=== PATIENT | female | born 1965 | race Caucasian/White ===

== ENCOUNTER 2019-10-15 08:14 | Day surgery (SDC) | payer MEDICARE ==
[2019-10-12 17:05] LABS: BASOPHILS % (AUTO) 0.5 % (0-1); EOSINOPHILS # (AUTO) 0.1 X10'3 (0-0.9); EOSINOPHILS % (AUTO) 1.4 % (0-6); LYMPHOCYTES # (AUTO) 2.8 X10'3 (1.1-4.8); LYMPHOCYTES % (AUTO) 37.1 % (21-51); MEAN CORPUSCULAR HEMOGLOBIN 29.8 PG (27.0-31.0); MEAN CORPUSCULAR HGB CONC 33.4 g/dL (33.0-36.5); MEAN CORPUSCULAR VOLUME 89.3 FL (78-98); MONOCYTES # (AUTO) 0.6 X10'3 (0-0.9); MONOCYTES % (AUTO) 7.5 % (2-12); NEUTROPHILS % (AUTO) 53.5 % (42-75); PRE OP HEMOGLOBIN 12.7 g/dL (12.0-16.0); PRE OP PLATELET COUNT 260 X10'3 (140-440); RED BLOOD COUNT 4.25 X10'6 (4.20-5.60); RED CELL DISTRIBUTION WIDTH 14.2 % (11.5-14.5)
[2019-10-12 17:08] LABS: CLARITY,URINE SLIGHTLY CLOUDY (Clear); COLOR,URINE YELLOW (Yellow); GLUCOSE, URINE NEGATIVE (Neg); KETONES,URINE NEGATIVE (Neg); LEUKOCYTE ESTERASE ,URINE NEGATIVE (Neg); NITRITES, URINE NEGATIVE (Neg); OCCULT BLOOD,URINE NEGATIVE (Neg); PROTEIN,URINE NEGATIVE (Neg); UROBILINOGEN,URINE 0.2 E.U/dL (0.2-1.0)
[2019-10-12 17:11] LABS: UA COLLECTION TYPE CLN CATCH MIDSTREAM
[2019-10-12 17:17] LABS: PRE OP PROTIME 10.3 SECONDS (9.0-12.0)
[2019-10-12 17:20] LABS: ALBUMIN 3.9 G/DL (3.4-5.0); ALBUMIN/GLOBULIN RATIO 1.2 (1.1-1.5); ALKALINE PHOSPHATASE 87 IU/L (46-116); BLOOD UREA NITROGEN 20 MG/DL (7-18); BUN/CREATININE RATIO 22.2 (6.6-38.0); CALCIUM 8.4 MG/DL (8.5-10.1); CHLORIDE 106 MMOL/L (99-107); PRE OP ALT 28 U/L (30-65); PRE OP ANION GAP 2 (8-16); PRE OP AST 13 U/L (10-37); PRE OP BILIRUB, TOTAL 0.3 MG/DL (0.0-1.0); PRE OP GLUCOSE 97 MG/DL (70-104); PRE OP POTASSIUM 3.5 MMOL/L (3.4-5.1); PRE OP SODIUM 140 MMOL/L (135-145); TOTAL CARBON DIOXIDE 31.7 MMOL/L (24-32); TOTAL PROTEIN 7.2 G/DL (6.4-8.2); eGFR 66 ML/MIN
[2019-10-12 17:22] LABS: MUCUS STRANDS MANY /LPF (Neg); SQUAMOUS EPITHELIAL CELL,UR MANY /LPF (FEW); TRANSITIONAL EPI CELLS,URINE FEW /HPF
[2019-10-12 17:24] LABS: RBC,URINE 0-2 /HPF (0-2); WBC,URINE 0-4 /HPF (0-4)
[2019-10-12 17:25] LABS: BACTERIA,URINE 3+ /HPF (Neg)
[2019-10-12 17:26] LABS: YEAST FEW /HPF (NEGATIVE)
[~2019-10-15] VITALS: Ht 172.7 cm; Wt 77.0 kg
[2019-10-15] VITALS (10 sets, daily range): BP systolic 120–140; BP diastolic 66–85
[~2019-10-15 08:14] MED LIST: ALPR-624 PO; IBUPROFEN PRN; LAMO100T2 PO; MELA3TAB64 PO; QUET50TA PO; TYLENOL PRN; ceFOXitin 2 GM ADDVANTGE BAG 50 ML IV ONE; famotidine 10mg tablet PO ONE; ringers solution, lacted 1,000 ML IV SCH
[2019-10-15] MEDS ORDERED: BUPIVAcaine/PF 2.5 mg/ml (0.25%) 30ml vial ONE ×2 (09:22→11:03)
[2019-10-15] MEDS ORDERED: ringers solution, lacted 1,000 ML IV SCH (09:36)
[2019-10-15] MEDS ORDERED: proCHLORperazine 10 MG/2 ml inj IV PRN (09:40)
[2019-10-15] MEDS ORDERED: morphine 4 MG/ML inj SYRINge IV PRN ×2 (09:40)
[2019-10-15] MEDS ORDERED: meperidine/PF 25mg/ml syringe IV PRN ×3 (09:40)
[2019-10-15] MEDS ORDERED: ondansetron/PF 4mg/2ml inj IV PRN (09:40)
[2019-10-15] MEDS ORDERED: aprepitant 40mg capsule PO ONE (09:54)
[2019-10-15] MEDS ORDERED: scopolamine 1.5mg patch.TD72 TD ONE (09:54)
[2019-10-15] MEDS ORDERED: midazolam 2 mg/2 ml injection ONE (09:56)
[2019-10-15] MEDS ORDERED: fentaNYL /PF 50mcg/ml 5ml ampule ONE (09:57)
[2019-10-15] MEDS ORDERED: propofol inj 20 ML IV ONE (09:57)
[2019-10-15] MEDS ORDERED: LIDOcaine 2% (20mg/ml) 5ml vial ONE (09:57)
[2019-10-15] MEDS ORDERED: ondansetron/PF 4mg/2ml inj ONE (09:59)
[2019-10-15] MEDS ORDERED: rocuronium 10mg/ml inj IV ONE (09:59)
[2019-10-15] MEDS ORDERED: sevoflurane 250ml liquid IH ONE (10:05)
[2019-10-15] MEDS ORDERED: dexamethasone sod phosphate 10mg/ml inj ONE (10:05)
[2019-10-15] MEDS ORDERED: acetaminophen 1,000mg/100ml IV 100 ML IV ONE ×2 (10:30→12:31)
[2019-10-15] MEDS ORDERED: meperidine/PF 50mg/ml syringe ONE (12:54)
[2019-10-15] MEDS ORDERED: ketorolac trometh. 30mg/ml inj. ONE (13:30)
--- NOTE | 2019-10-15 13:40 | NUR ---
Received from OR via BED , accompanied by Anesthesiologist DR THAYER and report given by Anesthesiolgist. PATIENT WAKING UP, DENIES, V/S WNL, NEUROVASCULAR CHECKS INTACT, 20G PIV RUE, SCD ON, DEMABONDED AND BAND AIDS TO LAP SIGHTS OF ABDOMEN AND WITH PERIPAD WITH SCANT DRAINAGE CDI.
--- NOTE | 2019-10-15 15:00 | NUR ---
PATIENT A&OX4, DENIES, V/S WNL, NEUROVASCULAR CHECKS INTACT, 20G PIV RUE D/C, SCD OFF, DEMABONDED AND BAND AIDS TO LAP SIGHTS OF ABDOMEN AND WITH PERIPAD WITH SCANT DRAINAGE CDI. . I HAVE REVIEWED D/C INSTRUCTIONS WITH PATIENT AND FAMILY AND THEY HAVE VERBALIZED UNDERSTANDING. PATIENT D/C HOME WITH FAMILY TO TRANSPORT AND ALL BELONGINGS..
== END 2019-10-15 15:00 | disposition home or self-care (01) ==
LOC: PAS 08:14
PROVIDERS: ATTEND Obstetrics & Gynecology
DX: R19.00 Intra-abdominal and pelvic swelling, mass and lump, unspecified site (principal); D25.1 Intramural leiomyoma of uterus; N80.1 Endometriosis of ovary; N73.6 Female pelvic peritoneal adhesions (postinfective); Z98.890 Other specified postprocedural states; F41.9 Anxiety disorder, unspecified; F31.9 Bipolar disorder, unspecified; Z88.8 Allergy status to other drugs, medicaments and biological substances; Z79.899 Other long term (current) drug therapy; Z79.01 Long term (current) use of anticoagulants
CPT/HCPCS: 36415; 58571; 80053; 81001; 82948; 85025; 85610; 85730; 86885; 86900; 86901; 93005; C1758; J0131; J0694; J1100; J1885; J2001; J2175; J2250; J2405; J2704; J3010; J3490; J7120; J8501; A4618; A7000

== ENCOUNTER 2019-11-06 21:51 | Emergency (ER) | payer MEDICARE ==
[~2019-11-06] VITALS: Ht 172.7 cm; Wt 76.4 kg
[~2019-11-06 21:51] MED LIST changes: -ceFOXitin 2 GM ADDVANTGE BAG 50 ML IV ONE; -famotidine 10mg tablet PO ONE; -ringers solution, lacted 1,000 ML IV SCH
[2019-11-06 23:57] LABS: BASOPHILS % (AUTO) 0.5 % (0-1); EOSINOPHILS # (AUTO) 0.2 X10'3 (0-0.9); EOSINOPHILS % (AUTO) 2.6 % (0-6); HEMATOCRIT 34.8 % (35.0-45.0); HEMOGLOBIN 11.7 g/dl (12.0-16.0); LYMPHOCYTES # (AUTO) 3.3 X10'3 (1.1-4.8); LYMPHOCYTES % (AUTO) 45.8 % (21-51); MEAN CORPUSCULAR HEMOGLOBIN 29.8 PG (27.0-31.0); MEAN CORPUSCULAR HGB CONC 33.7 g/dL (33.0-36.5); MEAN CORPUSCULAR VOLUME 88.3 FL (78-98); MEAN PLATELET VOLUME 8.6 FL (7.4-10.4); MONOCYTES # (AUTO) 0.5 X10'3 (0-0.9); MONOCYTES % (AUTO) 6.8 % (2-12); NEUTROPHILS # (AUTO) 3.2 X10'3 (1.8-7.7); NEUTROPHILS % (AUTO) 44.3 % (42-75); PLATELET COUNT 316 X10'3 (140-440); RED BLOOD COUNT 3.94 X10'6 (4.20-5.60); RED CELL DISTRIBUTION WIDTH 13.4 % (11.5-14.5); WHITE BLOOD COUNT 7.2 X10'3 (4.5-11.0)
[2019-11-06] MEDS ORDERED: iohexol 300mg/ml 100ml inj. ONE (23:57)
[2019-11-07 00:10] LABS: ALANINE AMINOTRANSFERASE 21 U/L (12-78); ALBUMIN 3.3 G/DL (3.4-5.0); ALKALINE PHOSPHATASE 90 IU/L (46-116); ANION GAP 8 (8-16); ASPARTATE AMINO TRANSFERASE 14 U/L (10-37); BILIRUBIN,TOTAL 0.1 MG/DL (0.1-1.0); BLOOD UREA NITROGEN 25 MG/DL (7-18); BUN/CREATININE RATIO 28.1 (6.6-38.0); CALCIUM 8.5 MG/DL (8.5-10.1); CHLORIDE 108 MMOL/L (99-107); CREATININE 0.89 MG/DL (0.40-0.90); GLUCOSE 101 MG/DL (70-104); POTASSIUM 4.1 MMOL/L (3.5-5.1); SODIUM 143 MMOL/L (135-145); TOTAL CARBON DIOXIDE 27.5 MMOL/L (24-32); TOTAL PROTEIN 6.6 G/DL (6.4-8.2); eGFR 67 ML/MIN
[2019-11-07 01:03] VITALS: BP 146/93
[2019-11-07 01:11] LABS: CLARITY,URINE CLEAR (Clear); COLOR,URINE YELLOW (Yellow); GLUCOSE, URINE NEGATIVE (Neg); KETONES,URINE NEGATIVE (Neg); LEUKOCYTE ESTERASE ,URINE NEGATIVE (Neg); NITRITES, URINE NEGATIVE (Neg); OCCULT BLOOD,URINE LARGE (Neg); PROTEIN,URINE NEGATIVE (Neg); UROBILINOGEN,URINE 0.2 E.U/dL (0.2-1.0)
[2019-11-07 01:18] LABS: RBC,URINE 20-50 /HPF (0-2); UA COLLECTION TYPE VOIDED; WBC,URINE NONE SEEN /HPF (0-4)
[2019-11-07 01:19] LABS: BACTERIA,URINE NONE SEEN /HPF (Neg); SQUAMOUS EPITHELIAL CELL,UR FEW /LPF (FEW)
== END 2019-11-07 01:38 | disposition home or self-care (01) ==
LOC: ER 21:51
DX: K59.00 Constipation, unspecified (principal); N93.8 Other specified abnormal uterine and vaginal bleeding; R10.11 Right upper quadrant pain; E78.00 Pure hypercholesterolemia, unspecified; I10 Essential (primary) hypertension; Z98.890 Other specified postprocedural states; Z88.8 Allergy status to other drugs, medicaments and biological substances; Z88.1 Allergy status to other antibiotic agents; Z79.899 Other long term (current) drug therapy
CPT/HCPCS: 36415; 74177; 80053; 81001; 85025; 99284; Q9967

== ENCOUNTER 2021-01-20 23:03 | Emergency (ER) | payer MEDICARE ==
[~2021-01-20] VITALS: Ht 172.7 cm; Wt 77.3 kg
[~2021-01-20 23:03] MED LIST changes: +MELA3TAB39 PO; -MELA3TAB64 PO
[2021-01-20 23:41] LABS: ALANINE AMINOTRANSFERASE 30 U/L (12-78); ALBUMIN 4.3 G/DL (3.4-5.0); ALBUMIN/GLOBULIN RATIO 1.1 (1.1-1.5); ALKALINE PHOSPHATASE 130 IU/L (46-116); ANION GAP 7 (8-16); ASPARTATE AMINO TRANSFERASE 19 U/L (10-37); BASOPHILS % (AUTO) 0.3 % (0-1); BILIRUBIN,TOTAL 0.3 MG/DL (0.1-1.0); BLOOD UREA NITROGEN 19 MG/DL (7-18); BUN/CREATININE RATIO 17.4 (6.6-38.0); CALCIUM 9.3 MG/DL (8.5-10.1); CHLORIDE 106 MMOL/L (99-107); CREATININE 1.09 MG/DL (0.40-0.90); EOSINOPHILS # (AUTO) 0.2 X10'3 (0-0.9); EOSINOPHILS % (AUTO) 1.3 % (0-6); GLUCOSE 99 MG/DL (70-104); HEMATOCRIT 40.7 % (35.0-45.0); HEMOGLOBIN 13.4 g/dl (12.0-16.0); LYMPHOCYTES # (AUTO) 4.5 X10'3 (1.1-4.8); LYMPHOCYTES % (AUTO) 37.6 % (21-51); MEAN CORPUSCULAR HEMOGLOBIN 29.3 PG (27.0-31.0); MEAN CORPUSCULAR HGB CONC 32.9 g/dL (33.0-36.5); MEAN CORPUSCULAR VOLUME 88.8 FL (78-98); MONOCYTES # (AUTO) 0.9 X10'3 (0-0.9); MONOCYTES % (AUTO) 7.5 % (2-12); NEUTROPHILS # (AUTO) 6.4 X10'3 (1.8-7.7); NEUTROPHILS % (AUTO) 53.3 % (42-75); PLATELET COUNT 329 X10'3 (140-440); POTASSIUM 3.9 MMOL/L (3.5-5.1); RED BLOOD COUNT 4.58 X10'6 (4.20-5.60); RED CELL DISTRIBUTION WIDTH 13.3 % (11.5-14.5); SODIUM 142 MMOL/L (135-145); TOTAL CARBON DIOXIDE 28.9 MMOL/L (24-32); TOTAL PROTEIN 8.2 G/DL (6.4-8.2); eGFR 53 ML/MIN
[2021-01-21 04:16] VITALS: BP 176/91
== END 2021-01-21 04:18 | disposition home or self-care (01) ==
LOC: ER 23:04
DX: R07.89 Other chest pain (principal); I10 Essential (primary) hypertension; R53.83 Other fatigue; E78.00 Pure hypercholesterolemia, unspecified; G89.29 Other chronic pain; Z79.899 Other long term (current) drug therapy; Z88.2 Allergy status to sulfonamides; Z88.8 Allergy status to other drugs, medicaments and biological substances
CPT/HCPCS: 36415; 71045; 80053; 83880; 84484; 85025; 93005; 99285

== ENCOUNTER 2022-01-05 12:39 | Emergency (ER) | payer MEDICARE ==
[~2022-01-05] VITALS: Ht 172.7 cm; Wt 75.0 kg
[2022-01-05 13:00] VITALS: BP 109/68
== END 2022-01-05 15:09 | disposition left against medical advice (07) ==
LOC: ER 12:40
DX: R05.9 Cough, unspecified (principal); Z53.21 Procedure and treatment not carried out due to patient leaving prior to being seen by health care provider

== ENCOUNTER 2022-07-30 14:16 | Emergency (ER) | payer MEDICARE ==
[~2022-07-30] VITALS: Ht 172.7 cm; Wt 68.0 kg
[2022-07-30 15:20] VITALS: BP 138/68
[2022-07-30 15:32] LABS: BASOPHILS % (AUTO) 0.6 % (0-1); EOSINOPHILS # (AUTO) 0.1 X10'3 (0-0.9); EOSINOPHILS % (AUTO) 1.6 % (0-6); HEMATOCRIT 35.9 % (35.0-45.0); HEMOGLOBIN 11.8 g/dl (12.0-16.0); LYMPHOCYTES # (AUTO) 3.2 X10'3 (1.1-4.8); LYMPHOCYTES % (AUTO) 46.4 % (21-51); MEAN CORPUSCULAR HEMOGLOBIN 30.2 PG (27.0-31.0); MEAN CORPUSCULAR HGB CONC 32.9 g/dL (33.0-36.5); MEAN CORPUSCULAR VOLUME 91.9 FL (78-98); MEAN PLATELET VOLUME 9.1 FL (7.4-10.4); MONOCYTES # (AUTO) 0.4 X10'3 (0-0.9); NEUTROPHILS # (AUTO) 3.2 X10'3 (1.8-7.7); NEUTROPHILS % (AUTO) 45.4 % (42-75); PLATELET COUNT 251 X10'3 (140-440); RED CELL DISTRIBUTION WIDTH 12.9 % (11.5-14.5)
[2022-07-30 15:45] LABS: ALANINE AMINOTRANSFERASE 21 U/L (12-78); ALBUMIN 3.6 G/DL (3.4-5.0); ALBUMIN/GLOBULIN RATIO 1.2 (1.1-1.5); ALKALINE PHOSPHATASE 72 IU/L (46-116); ANION GAP 6 (8-16); ASPARTATE AMINO TRANSFERASE 15 U/L (10-37); BILIRUBIN,TOTAL 0.3 MG/DL (0.1-1.0); BLOOD UREA NITROGEN 16 MG/DL (7-18); BUN/CREATININE RATIO 20.5 (6.6-38.0); CALCIUM 8.9 MG/DL (8.5-10.1); CHLORIDE 107 MMOL/L (99-107); CREATININE 0.78 MG/DL (0.40-0.90); GLUCOSE 86 MG/DL (70-104); LIPASE 84 U/L (73-393); SODIUM 143 MMOL/L (135-145); TOTAL CARBON DIOXIDE 30.3 MMOL/L (24-32); TOTAL PROTEIN 6.7 G/DL (6.4-8.2); eGFR 77 ML/MIN
[2022-07-30] MEDS ORDERED: mag hydrox/Alum hydrox/simeth 30ml oral suspension PO ONE (16:25)
[2022-07-30] MEDS ORDERED: LIDOcaine Viscous 15ml cup MM ONE (16:25)
[2022-07-30] MEDS ORDERED: famotidine 20mg tablet PO ONE (16:25)
[2022-07-30 17:23] LABS: URINE HCG NEGATIVE (NEG)
[2022-07-30 17:25] LABS: CLARITY,URINE CLEAR (Clear); COLOR,URINE YELLOW (Yellow); GLUCOSE, URINE NEGATIVE (Neg); KETONES,URINE NEGATIVE (Neg); LEUKOCYTE ESTERASE ,URINE NEGATIVE (Neg); NITRITES, URINE NEGATIVE (Neg); OCCULT BLOOD,URINE NEGATIVE (Neg); PH,URINE 5.5 (4.8-8.0); PROTEIN,URINE NEGATIVE (Neg); UROBILINOGEN,URINE 0.2 E.U/dL (0.2-1.0)
[2022-07-30 17:53] LABS: UA COLLECTION TYPE CLN CATCH MIDSTREAM
== END 2022-07-30 17:53 | disposition home or self-care (01) ==
LOC: ER 14:17
DX: K59.00 Constipation, unspecified (principal); R10.13 Epigastric pain; E78.00 Pure hypercholesterolemia, unspecified; G89.29 Other chronic pain; F41.9 Anxiety disorder, unspecified; F32.A Depression, unspecified; Z98.890 Other specified postprocedural states; Z88.1 Allergy status to other antibiotic agents; Z88.8 Allergy status to other drugs, medicaments and biological substances; Z79.899 Other long term (current) drug therapy
CPT/HCPCS: 36415; 80053; 81003; 81025; 83690; 85025; 93005; 99284

== ENCOUNTER 2025-07-22 14:16 | Emergency (ER) | payer OTHER, MEDICARE ==
[~2025-07-22] VITALS: Ht 172.7 cm; Wt 70.0 kg
[2025-07-22 14:45] VITALS: BP 144/81
--- NOTE | 2025-07-22 15:59 | Physician Documentation ---
History of Present Illness ~ Chief Complaint: Neck pain Stated Complaint: NECK PAIN Time Seen by MD: 18:51 Primary Medical Doctor: [facility] HPI This is a 59-year-old female who presents with left-sided neck pain onset Saturday afternoon, patient reports that she has experienced several episodes of dizziness with standing. Patient was seen by her primary care at the [facility] on Saturday though was directed to present to the emergency department if symptoms had not resolved by today. Medication Reconciliation Allergies: Coded Allergies: venlafaxine HCl (Verified Allergy, Unknown, 07/22/25) amoxicillin (Unverified Adverse Reaction, Unknown, 07/22/25) Scheduled Lamotrigine* (Lamictal*), 2 TAB PO DAILY, (Reported) Quetiapine Fumarate (Seroquel), 1 TAB PO HS, (Reported) Scheduled PRN Alprazolam* (Xanax*), 1 TAB PO DAILY PRN for for anxiety/agitation, (Reported) Melatonin (Melatonin), 1 TAB PO HS PRN for sleep, (Reported) Miscellaneous Medications [Ibuprofen Prn], (Reported) [Tylenol Prn], (Reported) Past Medical History Past Medical History: High Cholesterol, Chronic Pain, C-Diff, Anxiety, Depression Past Surgical History: orthopedic surgeries Patient History: Patient reports no known family medical history. Alcohol Use: None Drug Use: none Lives with: Spouse Lives In: Home Review of Systems ROS As stated above in the HPI, otherwise all systems are reviewed and negative. Physical Exam Vital Signs: Temperature: 97.1, Source: Temporal, Heart Rate: 73, Respiratory Rate: 16, BP: 144/81, Pulse Oximetry: 98, Weight: 70.000 Oxygen Flow Rate: 0 Physical Exam VITALS: Reviewed and as above. GENERAL: Alert, nontoxic appearing, no apparent distress. HEENT: RESPIRATORY: No increased work of breathing, no respiratory distress, speaking in full clear sentences CHEST: CV: BACK: GI: MUSCULOSKELETAL: SKIN: NEURO: PSYCH: Procedures Additional Procedures Procedure Note Trigger point injection Indication: Trigger point pain and left trapezium Procedure: Left trapezium was prepped with alcohol and then with a number 27 gauge needle 1 cc of lidocaine injected in three different trigger points Pt tolerated procedure well Progress Results/Orders Results/Orders Vital Signs 07/22/25 14:45 Temp 97.1 Pulse 73 Resp 16 B/P (MAP) 144/81 Pulse Ox 98 O2 Flow Rate 0 Medical Decision Making Findings MSE performed in triage and patient returned to ED lobby by nursing staff to await available ED room Additional Comment CT imaging reassuring for no acute pathology. Examination history consistent with a trigger point pain. Risks alternatives and benefits discussed with the patient regarding trigger point injections. Patient provided verbal consent. With a number 27 gauge needle and 1% lidocaine 3 times 1 cc injections were administered. Patient had moderate relief after 1 minute. She is pending re- evaluation and disposition. She will continue with her Lidoderm patches, Naprosyn and I have given her Librium to take 1-2 Zanaflex every 8 hours. [facility]. Patient's safely discharged in the emergency department grossly neurologically intact without focal neuro deficits. Departure Disposition: HOME / SELF CARE / HOMELESS Impression: Primary Impression: Trigger point injections Additional Impression: Spasm of left trapezius muscle Condition: Improved Discharge Instructions: Trigger Point Injection Additional Instructions: Tonight in the emergency department you had CT imaging obtained which was reassuring for no acute pathologies. Your additionally had three trigger point injections that has provided you temporary relief. [facility] and [facility] of additional therapy. You may take 1-2 tablets of Zanaflex. Please return to the emergency department as needed. Thank you for visiting [facility]. Referrals: NO PRIMARY CARE PROVIDER (PCP) Education Educated: Patient Educated regarding: diagnosis, treatment, prognosis, need for follow up Signature Scribe Signature: . Attestation: . FERNANDO JESSICA DINING CHAIR SEAT CUSHION TRIMMER Jul 22, 2025 15:59 JENNY FRANCO PAC Jul 22, 2025 19:09
--- NOTE | 2025-07-22 17:10 | RADIOLOGY REPORT ---
EXAM: CT CT CERVICAL SPINE INDICATION: Neck pain TECHNIQUE: Non contrast axial images of the cervical spine have been obtained with coronal and sagittal reformatted images. CT scans at this facility use dose modulation, iterative reconstruction, and/or weight based dosing when appropriate to reduce radiation dose to as low as reasonably achievable. COMPARISON: None FINDINGS: ANATOMY: Cervical lordosis is maintained. VERTEBRAL BODIES: The vertebral bodies are normal in height and alignment. The dens is intact, the lateral masses of C1 are normally aligned, and the atlantodental interval is normal for age. Anterior cervical discectomy and fusion from C4 to C6. Multilevel degenerative change of the facets with multil evel fusion particularly from C4-C6 SPINAL CANAL: No significant spinal canal stenosis. INTERVERTEBRAL DISCS: No CT findings to suggest traumatic disc herniation or acute hematoma. SOFT TISSUES: There is no prevertebral soft tissue swelling. OTHER: The partially visualized lung apices are clear. IMPRESSION: 1. No acute cervical spine fracture or malalignment.
[2025-07-22 19:14] VITALS: TEMP 97.1
[2025-07-22 19:24] VITALS: PULSE 69; RESP 15; O2SAT 99
== END 2025-07-22 19:35 | disposition home or self-care (01) ==
LOC: ER 14:17
DX: M62.838 Other muscle spasm (principal); M54.2 Cervicalgia; R42 Dizziness and giddiness; E78.00 Pure hypercholesterolemia, unspecified; G89.29 Other chronic pain; F41.9 Anxiety disorder, unspecified; F32.A Depression, unspecified; Z98.890 Other specified postprocedural states; Z88.1 Allergy status to other antibiotic agents; Z79.899 Other long term (current) drug therapy
CPT/HCPCS: 20552; 72125; 99284